=== PATIENT | male | born 1965 | race Caucasian/White ===

== ENCOUNTER 2023-11-14 12:06 | Emergency (ER) | payer BC ==
[2023-11-14 12:19] VITALS: BP 146/79; PULSE 74; RESP 17; TEMP 98.2; BMI 29.0
[2023-11-14] MEDS ORDERED: METOCLOPRAMIDE HCL INJECTION 10 MG/2 ML VIAL ONE (13:22)
[2023-11-14] MEDS ORDERED: MECLIZINE HCL 25 MG TABLET (FP) ONE (13:22)
[2023-11-14] MEDS ORDERED: ACETAMINOPHEN INJECTION 100 ML ONE (13:22)
[2023-11-14] MEDS: MECLIZINE HCL 25 MG TABLET (FP) PO ONE (13:57)
[2023-11-14] MEDS: ACETAMINOPHEN 1000 MG/100 ML BAG IVPB ONE (13:58)
[2023-11-14] MEDS: SODIUM CHLORIDE 0.9% 500 ML INFUS.BAG IV ONE (13:58)
[2023-11-14] MEDS: METOCLOPRAMIDE HCL INJECTION 10 MG/2 ML VIAL IVPB ONE (13:58)
[2023-11-14 14:33] LABS: EOS % 2.5 % (0-4.5); HEMATOCRIT 44.5 % (35.4-49); HEMOGLOBIN 15.1 GM/dL (11.7-16.9); LYMPH % 35.3 % (8-40); MCHC 33.9 g/dl (32.0-35.9); MEAN CELL VOLUME 91.4 fl (80-96); MEAN PLT VOLUME 9.2 fl (7.5-11.1); MONO % 8.8 % (3.8-10.2); NEUT % 52.4 % (42.8-82.8); PLATELET COUNT 219 10^3/uL (134-434); RBC 4.87 M/mm3 (4.00-5.60); RDW 13.3 % (11.9-15.9)
[2023-11-14 14:39] LABS: INR 1.02 (0.83-1.09); PROTHROMBIN TIME (PATIENT) 11.5 SEC (9.7-13.0)
[2023-11-14 14:47] LABS: POTASSIUM 4.2 mmol/L (3.5-5.1)
[2023-11-14 14:50] LABS: ALBUMIN 4.4 g/dl (3.4-5.0); CALCIUM 9.9 mg/dL (8.5-10.1)
[2023-11-14 14:51] LABS: BLOOD UREA NITROGEN 10.5 mg/dL (7-18)
[2023-11-14 14:54] LABS: CREATININE 0.9 mg/dL (0.55-1.3)
[2023-11-14 14:55] LABS: BILIRUBIN,TOTAL 0.6 mg/dL (0.2-1); TOT PROT 7.8 g/dl (6.4-8.2)
== END 2023-11-14 17:31 | disposition home or self-care (01) ==
LOC: JER 12:06
PROC: 3E033NZ Introduction of Analgesics, Hypnotics, Sedatives into Peripheral Vein, Percutaneous Approach (ICD-10-PCS; principal; 2023-11-14)
PROC: 3E033GC Introduction of Other Therapeutic Substance into Peripheral Vein, Percutaneous Approach (ICD-10-PCS; 2023-11-14)
DX: R42 Dizziness and giddiness (principal); R51.9 Headache, unspecified
CPT/HCPCS: 36415; 70450-TC; 80053; 85025; 85610; 86850; 86900; 86901; 93005; 93010; 99285-25; J0131